=== PATIENT | female | born 1985 | race Caucasian/White ===

== ENCOUNTER 2019-05-27 16:15 | Emergency (ER) | payer OTHER ==
[~2019-05-27] VITALS: Ht 154.9 cm; Wt 59.0 kg
[2019-05-27 16:39] VITALS: BP 102/64
--- NOTE | 2019-05-27 17:37 | NUR ---
PT AMBULATED TO BED 2.
--- NOTE | 2019-05-27 18:07 | NUR ---
PATIENT LEFT WITHOUT BEING SEEN BY DR. FUENTES. NO FURTHER CARE PROVIDED FOR PATIENT.
== END 2019-05-27 18:07 | disposition left against medical advice (07) ==
LOC: MED 16:15
DX: O20.8 Other hemorrhage in early pregnancy (principal); O26.891 Other specified pregnancy related conditions, first trimester; R05 Cough; Z3A.01 Less than 8 weeks gestation of pregnancy; Z53.21 Procedure and treatment not carried out due to patient leaving prior to being seen by health care provider
CPT/HCPCS: 76817; 99281

== ENCOUNTER 2019-05-29 15:55 | Emergency (ER) | payer OTHER ==
[~2019-05-29] VITALS: Ht 157.5 cm; Wt 62.6 kg
[2019-05-29 16:16] VITALS: BP 130/75
--- NOTE | 2019-05-29 16:30 | NUR ---
33 Y/O F C/O VAGINAL BLEEDING X 3 DAYS WITH MILD CRAMPING. PT STATES SHE IS 4 1/2 WEEKS . PT DENIES N/V/FEVER. PT GOES THROUGH 2 PADS A DAY WITH BLEEDING. PT POSITIONED FOR COMFORT, BED LOWERED. AT BEDSIDE. LEE
[2019-05-29 16:51] LABS: BASOPHILS # (AUTO) 0.1 K/uL (0.00-0.22); BASOPHILS % (AUTO) 0.8 % (0.0-2.0); EOSINOPHILS # (AUTO) 0.1 K/uL (0-0.4); EOSINOPHILS % (AUTO) 1.7 % (0.0-4.0); HEMATOCRIT 41.6 % (36-48); HEMOGLOBIN 14.1 g/dL (12.0-16.0); LYMPHOCYTES # (AUTO) 1.4 K/uL (2.5-16.5); LYMPHOCYTES % (AUTO) 21.2 % (20.5-51.1); MEAN CORPUSCULAR HEMOGLOBIN 35 pg (27-31); MEAN CORPUSCULAR HGB CONC 34 g/dL (33-37); MEAN CORPUSCULAR VOLUME 102.4 fL (80-94); MONOCYTES # (AUTO) 0.6 K/uL (0.8-1.0); MONOCYTES % (AUTO) 8.9 % (1.7-9.3); NEUTROPHILS # (AUTO) 4.4 K/uL (1.8-7.7); NEUTROPHILS % (AUTO) 67.4 % (42.2-75.2); PLATELET COUNT (AUTO) 213 K/uL (140-450); RED BLOOD CELL COUNT(AUTO) 4.07 MIL/uL (4.20-5.40); RED CELL DISTRIBUTION WIDTH 12.5 % (11.6-13.7); WHITE BLOOD COUNT (AUTO) 6.5 K/uL (4.8-10.8)
[2019-05-29 17:17] LABS: APPEARANCE,URINE BLOODY (CLEAR); BILIRUBIN,URINE NEGATIVE (NEGATIVE); BLOOD, URINE 3+ (NEGATIVE); COLOR,URINE RED (YELLOW); LEUKOCYTE ESTERASE ,URINE TRACE (NEGATIVE); NITRITE, URINE NEGATIVE (NEGATIVE); PH,URINE 7.5 (5.0-9.0); UGLUCOSE NEGATIVE (NEGATIVE)
[2019-05-29 17:49] LABS: RBC,URINE >100 /HPF (0-5)
--- NOTE | 2019-05-29 18:14 | NUR ---
PT RESTING COMFORTABLY, AT BEDSIDE. INFORMED PT WE ARE WAITING FOR LAB WORK RESULTS.
[2019-05-29 19:19] VITALS: BP 100/68
--- NOTE | 2019-05-29 19:20 | NUR ---
Patient discharged with v/s stable. Written and verbal after care instructions given and explained. Patient verbalized understanding. Ambulatory with steady gait. All questions addressed prior to discharge. Advised to follow up with PMD.
== END 2019-05-29 19:19 | disposition home or self-care (01) ==
LOC: MED 15:55
DX: O20.0 Threatened abortion (principal); Z3A.01 Less than 8 weeks gestation of pregnancy
CPT/HCPCS: 36415; 81001; 84702; 85025; 86900; 86901; 87086; 87186; 99283

== ENCOUNTER 2019-05-31 10:42 | Emergency (ER) | payer OTHER ==
[~2019-05-31] VITALS: Ht 154.9 cm; Wt 62.6 kg
--- NOTE | 2019-05-31 10:45 | NUR ---
PT TO ER BED 5
[2019-05-31 10:58] VITALS: BP 140/84
--- NOTE | 2019-05-31 11:15 | NUR ---
3 DAYS PTC PT SOUGHT CONSULT HERE FOR VAGINAL BLEEDING AND WAS ADVISE FOR RECHECK OF HCG.PT AWAKE ,ALERT ,AFEBRILE ,AMBULATORY WITH STEADY GAIT.
--- NOTE | 2019-05-31 11:30 | NUR ---
LABS AT BEDSIDE.
--- NOTE | 2019-05-31 11:35 | NUR ---
BART AT BEDSIDE.
[2019-05-31 13:36] VITALS: BP 140/84
--- NOTE | 2019-05-31 13:36 | NUR ---
PATIENT ELOPED FROM FACILITY. DISCHARGE INSTRUCTIONS NOT GIVEN TO PATIENT. DR. CHACKO NOTIFIED.
== END 2019-05-31 13:36 | disposition left against medical advice (07) ==
LOC: MED 10:42
DX: O03.9 Complete or unspecified spontaneous abortion without complication (principal)
CPT/HCPCS: 36415; 76817; 84702; 99284; Q0092

== ENCOUNTER 2020-03-25 15:34 | Emergency (ER) | payer OTHER ==
[~2020-03-25] VITALS: Ht 154.9 cm; Wt 63.5 kg
[2020-03-25 15:38] VITALS: BP 102/76
--- NOTE | 2020-03-25 15:45 | NUR ---
PT TAKEN TO BED 4.
--- NOTE | 2020-03-25 15:50 | NUR ---
34 year old female complains of dizziness, headache, and nausea x 5 days. Pt states that symptoms started 5 days ago and her doctor told her it was from infected wisdom tooth. After removal yesterday the symptoms have gotten worse. Pt AOx4, breathing even and unlabored, skin warm and dry. bed in lowest position, locked, bed rail upx1. PMH - denies allergies - NKA
[2020-03-25] MEDS ORDERED: NACL 0.9% 1,000 ML IV ONE (16:05)
[2020-03-25] MEDS ORDERED: ONDANSETRON 4 MG/2 ML VIAL IVP ONE (16:05)
[2020-03-25] MEDS ORDERED: MORPHINE SULFATE 4 MG/ML SYR IVP ONE (16:05)
--- NOTE | 2020-03-25 17:18 | NUR ---
pt states she feels much better but still dizzy, ermd made aware
--- NOTE | 2020-03-25 17:32 | NUR ---
pt alert and awake, breathing even and unlabored. no distress noted.
--- NOTE | 2020-03-25 17:45 | NUR ---
Patient discharged with v/s stable. Written and verbal after care instructions about sinusitis and dental extraction given and explained. Patient alert, oriented and verbalized understanding of instructions. Ambulatory with steady gait. All questions addressed prior to discharge. ID band removed. Patient advised to follow up with PMD. Rx of zofran and norco given. Patient educated on indication of medication including possible reaction and side effects. Opportunity to ask questions provided and answered.
[2020-03-25 17:48] VITALS: BP 107/60
== END 2020-03-25 17:45 | disposition home or self-care (01) ==
LOC: MED 15:34
DX: J32.9 Chronic sinusitis, unspecified (principal); Z98.818 Other dental procedure status
CPT/HCPCS: 70450; 81025; 96361; 96374; 96375; 99284; J2270; J2405; J7030

== ENCOUNTER 2020-04-20 12:49 | Emergency (ER) | payer OTHER ==
[~2020-04-20] VITALS: Ht 154.9 cm; Wt 64.0 kg
[2020-04-20 13:01] VITALS: BP 126/69
--- NOTE | 2020-04-20 13:09 | NUR ---
34 Y/O female comes from home, presents to ED c/o 1 episode of vomiting blood about 20 min ago. Pt reports she was drinking yesterday and has a hx of heavy drinking. pt states she usto drink 2 bottles of vodka/day but stopped in , she states she recently began drinking again. AOx4, no active bleeding at this time. Denies nausea, pain, dizziness, fever or chills. hx: Anxiety rx: none NKDA
[2020-04-20 14:38] LABS: BASOPHILS # (AUTO) 0.1 K/uL (0.00-0.22); BASOPHILS % (AUTO) 1.4 % (0.0-2.0); EOSINOPHILS # (AUTO) 0.1 K/uL (0-0.4); EOSINOPHILS % (AUTO) 1.3 % (0.0-4.0); HEMATOCRIT 40.4 % (36-48); HEMOGLOBIN 13.5 g/dL (12.0-16.0); LYMPHOCYTES % (AUTO) 31.3 % (20.5-51.1); MEAN CORPUSCULAR HEMOGLOBIN 33 pg (27-31); MEAN CORPUSCULAR HGB CONC 34 g/dL (33-37); MEAN CORPUSCULAR VOLUME 98.7 fL (80-94); MONOCYTES # (AUTO) 0.5 K/uL (0.8-1.0); MONOCYTES % (AUTO) 8.1 % (1.7-9.3); NEUTROPHILS # (AUTO) 3.6 K/uL (1.8-7.7); NEUTROPHILS % (AUTO) 57.9 % (42.2-75.2); PLATELET COUNT (AUTO) 238 K/uL (140-450); RED BLOOD CELL COUNT(AUTO) 4.09 MIL/uL (4.20-5.40); WHITE BLOOD COUNT (AUTO) 6.3 K/uL (4.8-10.8)
[2020-04-20 15:04] LABS: ALBUMIN 4.3 g/dL (3.4-5.0); ANION GAP 14.5 (8-16); CARBON DIOXIDE 25.2 mmol/L (21-32); CREATININE 0.7 mg/dL (0.6-1.3); POTASSIUM 3.7 mmol/L (3.5-5.1); TOTAL BILIRUBIN 0.6 mg/dL (0.0-1.0)
--- NOTE | 2020-04-20 15:18 | NUR ---
PT STATES SHE NEEDS TO GO OUTSIDE TO SPEAK WITH HER , PT WAS ADVISED THAT IF SHE LEFT THE ED SHE WOULD HAVE TO GO THROUGH THE ADMITTING PROCESS AGAIN. PT AWARE AND DECIDED TO WALK OUT OF THE FACILITY ANYWAY.
--- NOTE | 2020-04-20 15:20 | NUR ---
PATIENT ELOPED FROM FACILITY. DISCHARGE INSTRUCTIONS NOT GIVEN TO PATIENT. NOTIFIED.
[2020-04-20 15:22] VITALS: BP 126/69
== END 2020-04-20 15:20 | disposition left against medical advice (07) ==
LOC: MED 12:49
DX: K92.0 Hematemesis (principal); F41.9 Anxiety disorder, unspecified
CPT/HCPCS: 36415; 80053; 83690; 85025; 99283

== ENCOUNTER 2023-09-04 18:24 | Emergency (ER) | payer MEDICAID, OTHER ==
[~2023-09-04] VITALS: Ht 160 cm; Wt 95.3 kg
[2023-09-04 18:45] VITALS: BP 156/97; PULSE 116; RESP 18; TEMP 98.8; O2SAT 99
== END 2023-09-04 20:05 | disposition left against medical advice (07) ==
LOC: MED 18:24
DX: H57.89 Other specified disorders of eye and adnexa (principal); Z53.21 Procedure and treatment not carried out due to patient leaving prior to being seen by health care provider
CPT/HCPCS: 99281